=== PATIENT | female | born 1960 | race Two or more races ===

== ENCOUNTER 2024-07-21 08:30 | Outpatient (RCR) | payer MEDICAID, SELFPAY ==
[2024-07-01 12:08] LABS: Basophils % (Auto) 1 % (0-2.5); Eosinophils # (Auto) 0.2 Thou/mm3 (0.0-0.5); Eosinophils % (Auto) 4 % (0-10); Hematocrit 37.8 % (36.0-46.0); Immature Granulocytes % (Auto) 1 % (0-0); Immature Granulocytes Auto 0.03 Thou/mm3 (0.00-0.00); Lymphocytes # (Auto) 1.3 Thou/mm3 (1.0-4.8); Lymphocytes % (Auto) 26 % (10-50); Mean Corpuscular HGB Conc 34.4 g/dl (31.0-37.0); Mean Corpuscular Hemoglobin 30.4 pg (25.0-35.0); Mean Corpuscular Volume 88 fL (80-100); Monocytes # (Auto) 0.5 Thou/mm3 (0.0-0.8); Monocytes % (Auto) 10 % (0-12); Neutrophils % (Auto) 59 % (37-80); Nucleated Red Blood Cell % 0 /100 WBC (0); Platelet Count 84 Thou/mm3 (140-440); RDW Standard Deviation 43.1 fL (36.4-46.3); Red Blood Count 4.28 Miln/mm3 (4.00-5.20); White Blood Count 5.1 Thou/mm3 (3.6-11.0)
[2024-07-01 12:31] LABS: Alanine Aminotransferase 18 U/L (10-49); Albumin, Serum 4.7 gm/dL (3.4-4.8); Albumin/Globulin Ratio 1.6 (1.2-2.2); Alkaline Phosphatase 160 U/L (46-116); Anion Gap 9 (7-16); Aspartate Amino Transferase 30 U/L (0-34); BUN/Creatinine Ratio 24 Ratio (12-20); Bilirubin,Total 2.3 mg/dL (0.3-1.2); Blood Urea Nitrogen 17 mg/dL (9-23); Calcium 10.2 mg/dL (8.3-10.6); Calcium (Corrected) 10.2 mg/dL (8.5-10.1); Carbon Dioxide 24.5 mMol/L (20.0-31.0); Chloride 103 mMol/L (98-107); Creatinine (Component) 0.7 mg/dL (0.6-1.3); Globulin 2.9 gm/dL (2.3-3.5); Glucose 110 mg/dL (74-106); Osmolality,Calculated 274 (275-295); Potassium 3.5 mMol/L (3.4-5.1); Sodium 136 mMol/L (136-145); Total Protein 7.6 gm/dL (5.7-8.2); eGFR > 60 See Note
== END 2024-07-30 23:59 | disposition home or self-care (01) ==
LOC: SCTC 08:30
PROVIDERS: Internal Medicine Hematology & Oncology; PCP Physician Assistant; Referring Provider Physician Assistant; Visit Provider Radiology Therapeutic Radiology
DX: C50.411 Malignant neoplasm of upper-outer quadrant of right female breast (principal); Z17.1 Estrogen receptor negative status [ER-]; Z17.22 Progesterone receptor negative status; Z17.32 Human epidermal growth factor receptor 2 negative status; Z90.11 Acquired absence of right breast and nipple; Z92.3 Personal history of irradiation; Z92.21 Personal history of antineoplastic chemotherapy
CPT/HCPCS: 36591; 80053; 85025; 99212; A4216; J1642; G0463

== ENCOUNTER → 2024-08-26 | Outpatient (CLI) | payer MEDICAID, SELFPAY ==
--- NOTE | 2024-08-26 11:00 | XR_ITS ---
Examination: Breast ultrasound, unilateral, right complete Date and time of exam: August 26, 2024 1136 hours INDICATIONS: Diagnosis malignant neoplasm upper outer quadrant right female breast August 2022 partial mastectomy Technique: Real-time eisenberg scale ultrasonographic imaging performed right breast including all 4 quadrants as well as nipple retroareolar and axillary region. Findings: Scar formation 11:00 right breast, no suspicious masses IMPRESSION: BI-RADS Category 3: Probably benign findings One additional 6 month right breast sonogram follow-up recommended to document stability of scar formation 11:00 position right breast
--- NOTE | 2024-08-26 11:30 | XR_ITS ---
Examination: Diagnostic digital mammography, unilateral, left Computer aided detection 3-D breast Tomosynthesis, unilateral Date and time of exam: August 26, 2024 at 1145 hours Comparison 05/10/2024 Technique: Nonmagnified MLO, CC views of the left breast have been obtained, reconstructed from 3-D Tomosynthesis images. R2 computer aided detection program utilized for evaluation of suspicious masses and/or abnormal calcifications. 3-D Tomosynthesis images obtained. Findings: Scattered areas of fibroglandular density Stable lymph node axillary left breast No interval suspicious masses Impression: BI-RADS category 2: Benign findings Return to yearly follow-up mammography
== END | disposition home or self-care (01) ==
PROVIDERS: Referring Provider Internal Medicine Hematology & Oncology; Visit Provider Internal Medicine Hematology & Oncology
DX: R92.321 Mammographic fibroglandular density, right breast (principal); R92.8 Other abnormal and inconclusive findings on diagnostic imaging of breast; C50.411 Malignant neoplasm of upper-outer quadrant of right female breast
CPT/HCPCS: 76641; 77061; 77065; G0279

== ENCOUNTER 2024-09-12 14:48 | Outpatient (RCR) | payer MEDICAID, SELFPAY | END 2024-09-30 23:59 | disposition home or self-care (01) | LOC: SCTC 14:48 | PROVIDERS: PCP Physician Assistant; Referring Provider Nurse Practitioner Family; Visit Provider Nurse Practitioner Family | DX: C50.411 Malignant neoplasm of upper-outer quadrant of right female breast (principal); Z17.1 Estrogen receptor negative status [ER-]; Z17.22 Progesterone receptor negative status; Z17.32 Human epidermal growth factor receptor 2 negative status; Z90.11 Acquired absence of right breast and nipple; Z92.3 Personal history of irradiation; Z92.21 Personal history of antineoplastic chemotherapy | CPT/HCPCS: 99212; G0463 ==

== ENCOUNTER → 2024-09-22 | Outpatient (CLI) | payer MEDICAID, SELFPAY ==
--- NOTE | 2024-09-22 13:30 | ECHO_ITS ---
Transthoracic Echo Report Ht (in): 61 Wt (lb): 145 Exam Location: Echo Lab Status: Preadmit Ornamental Metal Erector: Elyssa Avalos Indications: Procedure Performed: BP: / HR: Rhythm: Sinus Technical Quality: Fair MEASUREMENTS (Male / Female) Normal Values 2D ECHO LV Diastolic Diameter PLAX 4.5 cm 4.2 - 5.9 / 3.9 - 5.3 cm LV Systolic Diameter PLAX 2.8 cm IVS Diastolic Thickness 0.8 cm 0.6 - 1.0 / 0.6 - 0.9 cm LVPW Diastolic Thickness 0.9 cm 0.6 - 1.0 / 0.6 - 0.9 cm LV Relative Wall Thickness 0.4 LVOT Diameter 1.6 cm LA Volume Index 18.2 cm?/m? 16 - 28 cm?/m? Ascending Aorta Diameter 3.1 cm M-MODE Aortic Root Diameter MM 2.5 cm LA Systolic Diameter MM 3.9 cm LA Ao Ratio MM 1.6 AV Cusp Separation MM 1.8 cm DOPPLER AV Peak Velocity 175.0 cm/s AV Peak Gradient 12.3 mmHg AV Mean Gradient 6.0 mmHg AV Velocity Time Integral 39.0 cm LVOT Peak Velocity 126.0 cm/s LVOT Peak Gradient 6.4 mmHg LVOT Velocity Time Integral 27.3 cm AV Area Cont Eq vti 1.4 cm? AV Area Cont Eq pk 1.4 cm? MV Peak Velocity 94.7 cm/s MV Peak Gradient 3.6 mmHg MV Mean Velocity 62.4 cm/s MV Mean Gradient 2.0 mmHg MV Area PHT 3.2 cm? Mitral E Point Velocity 85.9 cm/s Mitral A Point Velocity 108.0 cm/s Mitral E to A Ratio 0.8 LV E' Lateral Velocity 14.1 cm/s Mitral E to LV E' Lateral Ratio 6.1 LV E' Septal Velocity 9.5 cm/s Mitral E to LV E' Septal Ratio 9.1 TR Peak Velocity 247.0 cm/s TR Peak Gradient 24.4 mmHg FINDINGS Left Ventricle Normal left ventricular size, wall thickness, systolic function with no obvious regional wall motion abnormalities. The ejection fraction is visually estimated at 60-65%. Right Ventricle The right ventricle is normal in size and systolic function. The estimated right ventricular systoli c pressure, 30mmHg. RAP 5. Left Atrium The left atrium is normal by two-dimensional, color flow and Doppler imaging with no structural abnormalities, no thrombus formation present. Right Atrium The right atrium is normal by two-dimensional imaging, color flow and Doppler imaging with no struct ural abnormalities, no thrombus formation present. Atrial Septum The interatrial septum appears normal with no evidence of a shunt. Aorta The aorta is normal by two-dimensional, color flow and Doppler interrogation. Mitral Valve The mitral valve is normal by two-dimensional, color flow and Doppler interrogation. There is trace mitral valve regurgitation. Aortic Valve The aortic valve is trileaflet and normal by two-dimensional, color flow and Doppler interrogation. There is no significant aortic valve regurgitation. Tricuspid Valve The tricuspid valve is normal by two-dimensional, color flow and Doppler interrogation. There is mil d tricuspid valve regurgitation. Pulmonic Valve There is trace pulmonic valve regurgitation. Vessels The pulmonary artery appears normal. The inferior vena cava pulmonary and hepatic veins appear alvaro l. Pericardium The pericardium is normal by two-dimensional imaging. There is no significant pericardial effusion. CONCLUSIONS Normal LV size and function. Estimated EF 60-65% Normal RV size and function. Estimated RVSP 30mmHg Trace MR.PI. Mild TR. Alyssa Medina (Electronically Signed) Final Date: 24 September 2024 09:17
== END | disposition home or self-care (01) ==
LOC: SDIM 13:31
PROVIDERS: PCP Physician Assistant; Referring Provider Internal Medicine Hematology & Oncology; Visit Provider Internal Medicine Hematology & Oncology
DX: I08.1 Rheumatic disorders of both mitral and tricuspid valves (principal); C50.411 Malignant neoplasm of upper-outer quadrant of right female breast
CPT/HCPCS: 93306

== ENCOUNTER → 2024-11-10 | Outpatient (CLI) | payer MEDICAID, SELFPAY ==
--- NOTE | 2024-11-10 14:30 | XR_ITS ---
Examination: Breast ultrasound, unilateral, right Date and time of exam: November 10, 2024 1420 hrs. Indications: Diagnosis malignant neoplasm upper quadrant right female breast, scar reformation 11:00 position right breast on breast sonogram August 26, 2024 Technique: Real-time eisenberg scale ultrasonographic imaging performed right breast including all 4 quadrants as well as nipple retroareolar and axillary region. Findings: Stable scar formation in the 11:00 position right breast No suspicious nodules Dilated ducts retroareolar Impression: BI-RADS Category 3: Probably benign findings Recommend 1 continued 6 month follow-up right breast sonogram to document stability of scar formation in the 11:00 position right breast
== END | disposition home or self-care (01) ==
PROVIDERS: PCP Physician Assistant; Referring Provider Internal Medicine Hematology & Oncology; Visit Provider Internal Medicine Hematology & Oncology
DX: R92.8 Other abnormal and inconclusive findings on diagnostic imaging of breast (principal); C50.411 Malignant neoplasm of upper-outer quadrant of right female breast
CPT/HCPCS: 76641

== ENCOUNTER → 2024-12-13 | Outpatient (CLI) | payer MEDICAID, SELFPAY ==
--- NOTE | 2024-12-13 14:30 | ECHO_ITS ---
Transthoracic Echo Report Ht (in): 60 Wt (lb): 144 Exam Location: Echo Lab Status: Preadmit Senior Quality Engineer: STELLA Jackson^^^^ Indications: Procedure Performed: BP: / HR: MEASUREMENTS (Male / Female) Normal Values 2D ECHO LV Diastolic Diameter PLAX 4.8 cm 4.2 - 5.9 / 3.9 - 5.3 cm LV Systolic Diameter PLAX 3.0 cm IVS Diastolic Thickness 1.0 cm 0.6 - 1.0 / 0.6 - 0.9 cm LVPW Diastolic Thickness 0.9 cm 0.6 - 1.0 / 0.6 - 0.9 cm LV Relative Wall Thickness 0.4 LVOT Diameter 1.4 cm Aortic Root Diameter 2.7 cm LA Systolic Diameter LX 3.6 cm 3.0 - 4.0 / 2.7 - 3.8 cm LA Volume Index 30.0 cm?/m? 16 - 28 cm?/m? DOPPLER AV Peak Velocity 171.5 cm/s AV Peak Gradient 11.8 mmHg AV Mean Gradient 6.5 mmHg AV Velocity Time Integral 42.4 cm LVOT Peak Velocity 119.0 cm/s LVOT Peak Gradient 5.7 mmHg LVOT Velocity Time Integral 31.2 cm AV Area Cont Eq vti 1.1 cm? AV Area Cont Eq pk 1.1 cm? MV Area PHT 3.9 cm? Mitral E Point Velocity 86.6 cm/s Mitral A Point Velocity 83.5 cm/s Mitral E to A Ratio 1.0 LV E' Lateral Velocity 12.9 cm/s Mitral E to LV E' Lateral Ratio 6.7 LV E' Septal Velocity 10.5 cm/s Mitral E to LV E' Septal Ratio 8.2 TR Peak Velocity 298.0 cm/s TR Peak Gradient 35.5 mmHg RVOT Peak Velocity 73.2 cm/s FINDINGS Left Ventricle Normal left ventricular size, wall thickness, systolic function with no obvious regional wall motion abnormalities. There is grade II diastolic dysfunction of the left ventricle (pseudonormal filling pattern). The left ventricular ejection fraction is normal, estimated at 55-60%. Right Ventricle The right ventricle is normal in size and systolic function. The estimated right ventricular systolic pressure, 36 mmHg Left Atrium The left atrium is normal by two-dimensional, color flow and Doppler imaging with no structural abnormalities, no thrombus formation present. Right Atrium The right atrium is normal by two-dimensional imaging, color flow and Doppler imaging with no structural abnormalities, no thrombus formation present. Atrial Septum The interatrial septum appears normal with no evidence of a shunt. Aorta The aorta is normal by two-dimensional, color flow and Doppler interrogation. Mitral Valve Mild mitral regurgitation. Mild mitral annular calcification. Aortic Valve Aortic valve sclerosis. Tricuspid Valve There is mild tricuspid valve regurgitation. Pulmonic Valve The pulmonic valve is not well visualized. There is no significant pulmonic valve regurgitation. Vessels The pulmonary artery appears normal. The inferior vena cava pulmonary and hepatic veins appear normal. Pericardium The pericardium is normal by two-dimensional imaging. There is no significant pericardial effusion. CONCLUSIONS indication: Cancer center The transthoracic study is normal by two-dimensional, color flow imaging and Doppler interrogation. Normal left ventricular size and function. Approximate ejection fraction is 60%. Trace mitral and trace tricuspid regurgitation Alyssa Medina (Electronically Signed) Final Date: 14 December 2024 11:58
== END | disposition home or self-care (01) ==
LOC: SDIM 13:51
PROVIDERS: PCP Physician Assistant; Referring Provider Internal Medicine Hematology & Oncology; Visit Provider Internal Medicine Hematology & Oncology
DX: I08.1 Rheumatic disorders of both mitral and tricuspid valves (principal); C50.411 Malignant neoplasm of upper-outer quadrant of right female breast
CPT/HCPCS: 93306

== ENCOUNTER → 2025-03-06 | Outpatient (CLI) | payer MEDICAID, SELFPAY ==
--- NOTE | 2025-03-06 13:00 | XR_ITS ---
Examination: Breast ultrasound, unilateral, right Date and time of exam: March 06, 2025 1315 hours Comparison November 10, 2024 INDICATIONS: Diagnosis malignant neoplasm upper quadrant right female breast, scar formation 11:00 position right breast on breast sonogram August 26, 2024 Technique: Real-time eisenberg scale ultrasonographic imaging performed right breast including all 4 quadrants as well as nipple retroareolar and axillary region. Findings: Scar formation 10 to 11:00 position right breast and retroareolar which appears slightly more prominent compared to November 13, 2024, IMPRESSION: BI-RADS Category 3: Probably benign findings Recommend 1 additional 6 month right breast sonogram follow-up to document stability of slightly more prominent scar formation right breast on the current study
== END | disposition home or self-care (01) ==
LOC: CDIM 12:40
PROVIDERS: PCP Physician Assistant; Referring Provider Internal Medicine Hematology & Oncology; Visit Provider Internal Medicine Hematology & Oncology
DX: R92.8 Other abnormal and inconclusive findings on diagnostic imaging of breast (principal); C50.411 Malignant neoplasm of upper-outer quadrant of right female breast
CPT/HCPCS: 76641

== ENCOUNTER 2025-03-22 10:50 | Outpatient (RCR) | payer MEDICAID, SELFPAY ==
[2025-03-17 09:56] LABS: Basophils # (Auto) 0.0 Thou/mm3 (0.0-0.2); Basophils % (Auto) 1 % (0-2.5); Eosinophils # (Auto) 0.2 Thou/mm3 (0.0-0.5); Eosinophils % (Auto) 4 % (0-10); Hematocrit 36.6 % (36.0-46.0); Hemoglobin 13.3 g/dL (12.0-16.0); Immature Granulocytes Auto 0.04 Thou/mm3 (0.00-0.00); Lymphocytes # (Auto) 1.2 Thou/mm3 (1.0-4.8); Lymphocytes % (Auto) 24 % (10-50); Mean Corpuscular HGB Conc 36.3 g/dl (31.0-37.0); Mean Corpuscular Hemoglobin 31.1 pg (25.0-35.0); Mean Corpuscular Volume 86 fL (80-100); Monocytes # (Auto) 0.6 Thou/mm3 (0.0-0.8); Monocytes % (Auto) 12 % (0-12); Neutrophils # (Auto) 3.0 Thou/mm3 (1.8-7.7); Neutrophils % (Auto) 59 % (37-80); Nucleated Red Blood Cell # 0.00 Thou/mm3 (0.00-0.00); Nucleated Red Blood Cell % 0 /100 WBC (0); Platelet Count 98 Thou/mm3 (140-440); RDW Standard Deviation 39.3 fL (36.4-46.3); Red Blood Count 4.28 Miln/mm3 (4.00-5.20); White Blood Count 5.1 Thou/mm3 (3.6-11.0)
[2025-03-17 10:18] LABS: Alanine Aminotransferase 21 U/L (10-49); Albumin, Serum 4.9 gm/dL (3.4-4.8); Albumin/Globulin Ratio 2.0 (1.2-2.2); Alkaline Phosphatase 111 U/L (46-116); Anion Gap 8 (7-16); Aspartate Amino Transferase 26 U/L (0-34); BUN/Creatinine Ratio 20 Ratio (12-20); Bilirubin,Total 1.7 mg/dL (0.3-1.2); Blood Urea Nitrogen 14 mg/dL (9-23); Calcium 10.3 mg/dL (8.3-10.6); Calcium (Corrected) 10.3 mg/dL (8.5-10.1); Carbon Dioxide 26.2 mMol/L (20.0-31.0); Chloride 104 mMol/L (98-107); Creatinine (Component) 0.7 mg/dL (0.6-1.3); Globulin 2.4 gm/dL (2.3-3.5); Glucose 106 mg/dL (74-106); Osmolality,Calculated 276 (275-295); Potassium 3.9 mMol/L (3.4-5.1); Sodium 138 mMol/L (136-145); Total Protein 7.3 gm/dL (5.7-8.2); eGFR > 60 See Note
[2025-03-17 10:36] LABS: CA 15-3 4.0 U/mL (<32.4); Carcinoembryonic Antigen < 0.0 ng/mL (0.0-5.0)
--- NOTE | 2025-03-27 05:22 | CTCFLWUP_ITS ---
Patient: NELLIE YANG : 1960 Page 5 of 7 FOLLOW UP NOTE DATE OF SERVICE: 03/22/2025 NAME: NELLIE YANG ACCOUNT: [id number] : 1960 AGE: 64 INTERVAL HISTORY: Patient in for follow-up visit. Patient history of right breast cancer. Right breast ultrasound done on 08/26/2024 showed probably benign findings, recommended 6-month right breast ultrasound to document stability of scar formation. Left breast mammogram done on 08/26/2024 showed benign findings rec ommend yearly mammogram. Patient denies any continued complaints. Patient reports good appetite and energy levels. Her history includes chronic hypertension and mild valvular regurgitation. Recent breast ultrasound (July 2024) showed benign findings. She has completed all required cancer treatments and currently has a port in place. The plan includes scheduling an annual mammogram, removing the implanted port ( referral placed to Dr. Levy), continuing regular follow-ups, and maintaining her upcoming echocardiogram. Dietary modifications were encouraged to address potential diabetes risk. ONCOLOGY HISTORY: Stage I EA (pT1c, N0, cM0) ER negative, AZ negative, HER2/demetrius overexpressed 3+, invasive ductal carcinoma of the right breast. Status post right partial mastectomy and sentinel lymph node biopsy (10/24/2022) Unable to tolerate paclitaxel due to what appears allergic reaction (11/25/2022) S/p adjuvant trastuzumab Emtansine (12/09/2022??02/12/2024) S/p adjuvant radiation therapy to the right breast (12/07/2023 - 01/01/2024) DIAGNOSIS: Malignant neoplasm of upper-outer quadrant of right female breast [ICD10] C50.411 DATE OF DIAGNOSIS: 09/15/2022 STAGE/TNM: Stage I EA (pT1c, N0, cM0) ER negative, AZ negative, HER2/demetrius overexpressed 3+, invasive ductal carcinoma of the right breast. TREATMENT HISTORY: Care?Plan Start?Date Cycle Day Intent taxol,?herceptin?1yr?adju 11/25/2022 1 21 Curative?(adjuvant) KADCYLA?adjuvant?17?cycles 12/09/2022 1 21 Curative?(adjuvant) HISTORY OF PRESENT ILLNESS: Nellie Yang is a 64-year-old Turkmen-speaking female with history of diabetes as well as hypertension has the following oncology history. 07/31/2022: Bilateral diagnostic digital mammography? 07/31/2022: Right breast ultrasound? 09/15/2022: Ultrasound-guided biopsy of the right breast mass? 10/24/2022: Right breast partial mastectomy and sentinel lymph node biopsy? 10/31/2022: Echocardiogram?LVEF 65-70% 11/25/2022: Ms. Yang had 1 dose of Taxol and Herceptin. Unfortunately she was not able to tolerate Taxol due to allergic reaction. 12/09/2022?02/12/2020: Ms. Yang was treated with adjuvant ado-trastuzumab emtansine (Kadcyla) 12/17/2023 - 01/01/2024: Ms. Yang had adjuvant radiation therapy to the right breast 03/30/2024: Bilateral screening mammograms OTHER MEDICAL HISTORY/CONDITIONS: Diabetes HTN Right breat cancer- dx 09/15/22 ROBERT-BSO - 10 yrs ago Cholecystectomy - 12yrs ago FAMILY HISTORY: Cancer?History:?Denies Patient?denies?family?cancer?history. SOCIAL HISTORY: Occupational?History:?[employer] Education?Level:?Attended College, did not graduate Marital?Status:? Tobacco?Pack?per?Day:?0 Tobacco?Use:?Denies ETOH?Use:?Denies Drug?Note:?Denies Social History Note:?Dtr and grandtr live with pt [employer]KER HISTORY: Menarche?-?Age:?15 Menopause:?2016 :?23 Live?Births:?4 Age?1st?:?4 MEDICATIONS: 1. amlodipine - 10 mg 1 tab Daily 2. metformin - 500 mg Daily 3. potassium chloride - 20 mEq 1 tab Daily 4. spironolactone - 50 mg 1 tab Daily 5. Vitamin D3 - 400 unit 1 Capsule Daily 6. ZyrTEC - 10 mg 1 tab As needed Medications Last Reconciled by Nellie Nolan MA on 03/22/2025 ALLERGIES: KETOROLAC TROMETHAMINE; shrimp; paclitaxel REVIEW OF SYSTEMS: A complete 14-point review of systems was performed and is negative except as noted in interval history. PHYSICAL EXAMINATION: VITAL SIGNS: Temperature?99.1, B/P?137/72, Oxygen?Saturation?99% PAIN: 0 - No pain ECOG Performance Status: 0 - Asymptomatic and fully active GENERAL APPEARANCE: Appears well, in no apparent distress, appropriately interactive. HEENT: Normocephalic, no temporal wasting, normal conjunctiva, no scleral icterus, normal hearing, lips without lesions, neck normal range of motion. CARDIOVASCULAR: Normal heart sounds. PULMONARY: Normal respiratory effort, no respiratory distress or use of accessory muscles, speaking in full sentences, no tachypnea. CHEST: Chemo-Port on right side of chest EXTREMITIES: No pedal edema or cyanosis. SKIN: Normal skin appearance. NEUROLOGIC: Alert and oriented x4. PSHYCHIATRIC: Appropriate affect, mood normal, behavior normal, intact thought and speech. LABORATORY DATA: I have personally reviewed and interpreted each of the patient?s relevant lab tests, abnormal findings are below: Date 07/01/24 03/17/25 ??WHITE?BLOOD?COUNT?(Thou/mm3) 5.1 5.1 ??RED?BLOOD?COUNT?(Miln/mm3) 4.28 4.28 ??HEMOGLOBIN?(gm/dl) 13.0 13.3 ??HEMATOCRIT?(%) 37.8 36.6 ??PLATELET?COUNT?(Thou/mm3) 84?L 98?L ??NEUTROPHILS?%,?AUTO?(%) 59 59 ??LYMPH?%,?AUTO?(%) 26 24 ??NEUTROPHILS,?AUTO?(Thou/mm3) 3.0 3.0 ??GLUCOSE,RANDOM?(mg/dL) ? 106 ??BLOOD?UREA?NITROGEN?(mg/dL) ? 14 ??CREATININE?(mg/dL) ? 0.70 ??SODIUM?(mmol/L) ? 138 ??POTASSIUM?(mmol/L) ? 3.9 ??CHLORIDE?(mmol/L) ? 104 ??CrCl?(CandG)?(ml/min) ? 73.64 ??AST/SGOT?(Unit/L) ? 26 ??ALT/SGPT?(Unit/L) ? 21 ??ALKALINE?PHOSPHATASE?(Unit/L) ? 111 ??BILIRUBIN,?TOTAL?(mg/dL) ? 1.7?H ??PROTEIN?TOTAL?(gm/dl) ? 7.3 ??ALBUMIN,?SERUM?(gm/dl) ? 4.9?H ??GLOBULIN?(gm/dl) ? 2.4 ??ALBUMIN/GLOBULIN?RATIO ? 2.0 ??CALCIUM,?SERUM?(mg/dL) ? 10.3 ??CALCIUM?SERUM?(CORRECTED)?(mg/dL) ? 10.3?H ??CEA?(O*)?(ng/ml) ? <?0.0?L ASSESSMENT/PLAN: 1. Stage IA (pT1c, N0, centimeters 0) ER negative, AZ negative, HER2/demetrius overexpressed 3+, invasive ductal carcinoma of the right breast. Status post right partial mastectomy and sentinel lymph node biopsy (10/24/2022) 10 mm left axillary lymph node was noted on recent mammograms. The patient had 1 year of adjuvant trastuzumab Emtansine. She also had adjuvant radiation therapy to the right breast as documented above. Port on right side of her chest, patient does not want to have removed at this time. Left breast mammogram recommended yearly follow-up, benign findings, 08/26/2024 Right breast ultrasound recommended 6-month follow-up to document stability with scar formation 08/26/2024. William is a patient with a history of early-stage breast cancer, presenting for follow-up and management of various health concerns. History of Early-Stage Breast Cancer Assessment: Patient has a history of very early-stage breast cancer, measuring 0.6 cm and ER/AZ positive. She has completed all required treatments. Recent breast ultrasound in July showed benign findings. Last mammogram was performed in July 2024. Plan: - Schedule annual mammogram (due now) - Remove implanted port (placed 2 years ago) - Referral placed to Dr. Levy for port removal - Continue regular follow-ups Cardiovascular Health Assessment: Patient has normal heart function with mild valvular regurgitation, possibly secondary to chronic hypertension. Echocardiogram shows overall normal cardiac function. Plan: - Echocardiogram scheduled for upcoming Thursday - Continue management of hypertension (if diagnosed) - Encourage lifestyle modifications for cardiovascular health Diabetes Risk Assessment: Patient mentions efforts to manage diet, suggesting possible concerns about diabetes risk or diagnosis. Plan: - Encourage continuation of dietary modifications - Reinforce importance of avoiding high-sugar foods ORDERS: Order # Description [id number] RETURN TO CLINIC: I reviewed the diagnosis, prognosis, and recommended treatment/procedure options with the patient (and/or their legal ocean import representative), including the potential benefits, risks, side effects and alternative therapies. We also discussed the option of no treatment and the possibility of clinical trial participation, if applicable. All questions were addressed, and they demonstrated understanding. They provided informed consent to proceed with the proposed plan of care. BILLING AND COMPLIANCE: I reviewed external records from providers outside my specialty as summarized above. I spent a total of 50 minutes on this patient?s care on the day of their visit excluding time spent related to any billed procedures. This time includes time spent with the patient as well as time spent documenting in the medical record, reviewing patients records and tests, obtaining history, placing orders, communicating with other healthcare professionals, counseling the patient, family or caregiver, and/or care coordination for the diagnoses above. Electronically Signed by: Jose Milligan MD T: 5:20 AM CC: PCP: Shana Simms Referring: Shana Simms This document was completed utilizing speech recognition software. Grammatical errors, random word insertions, pronoun errors, and incomplete sentences are an occasional consequence of this system due to software limitations, ambient noise, and hardware issues. Any formal questions or concerns about the content, text or information contained within the body of this dictation should be directly addressed to the provider for clarification.
== END 2025-03-30 23:59 | disposition home or self-care (01) ==
LOC: SCTC 10:50
PROVIDERS: Nurse Practitioner Family; PCP Physician Assistant; Referring Provider Physician Assistant; Visit Provider Internal Medicine Hematology & Oncology
DX: C50.411 Malignant neoplasm of upper-outer quadrant of right female breast (principal); Z08 Encounter for follow-up examination after completed treatment for malignant neoplasm; Z85.3 Personal history of malignant neoplasm of breast; Z90.11 Acquired absence of right breast and nipple; Z92.21 Personal history of antineoplastic chemotherapy; Z92.3 Personal history of irradiation; I10 Essential (primary) hypertension; I38 Endocarditis, valve unspecified; Z71.3 Dietary counseling and surveillance
CPT/HCPCS: 36591; 80053; 82378; 85025; 86300; 99212; G0463

== ENCOUNTER → 2025-03-26 | Outpatient (CLI) | payer MEDICAID, SELFPAY ==
--- NOTE | 2025-03-26 12:00 | ECHO_ITS ---
Transthoracic Echo Report Ht (in): 60 Wt (lb): 146 Exam Location: Echo Lab Status: Preadmit Pens And Pencils Repairer: Adrianna Patel Indications: Procedure Performed: BP: / HR: MEASUREMENTS (Male / Female) Normal Values 2D ECHO LV Diastolic Diameter PLAX 4.4 cm 4.2 - 5.9 / 3.9 - 5.3 cm LV Systolic Diameter PLAX 2.6 cm IVS Diastolic Thickness 0.9 cm 0.6 - 1.0 / 0.6 - 0.9 cm LVPW Diastolic Thickness 1.0 cm 0.6 - 1.0 / 0.6 - 0.9 cm LV Relative Wall Thickness 0.4 LVOT Diameter 1.6 cm Aortic Root Diameter 1.9 cm LA Systolic Diameter LX 2.9 cm 3.0 - 4.0 / 2.7 - 3.8 cm LV Ejection Fraction MOD BP 67.1 % >= 55 % LV Ejection Fraction MOD 4C 70.2 % LV Ejection Fraction 4C AL 71.6 % LV Ejection Fraction MOD 2C 63.2 % LV Ejection Fraction 2C AL 64.3 % LA Volume Index 19.3 cm?/m? 16 - 28 cm?/m? M-MODE Aortic Root Diameter MM 2.0 cm LA Systolic Diameter MM 2.9 cm LA Ao Ratio MM 1.5 AV Cusp Separation MM 1.4 cm DOPPLER AV Peak Velocity 157.5 cm/s AV Peak Gradient 9.9 mmHg AV Mean Gradient 4.0 mmHg AV Velocity Time Integral 34.5 cm LVOT Peak Velocity 127.0 cm/s LVOT Peak Gradient 6.5 mmHg LVOT Velocity Time Integral 34.8 cm AV Area Cont Eq vti 2.0 cm? AV Area Cont Eq pk 1.6 cm? MV Area PHT 3.6 cm? Mitral E Point Velocity 74.7 cm/s Mitral A Point Velocity 81.5 cm/s Mitral E to A Ratio 0.9 LV E' Lateral Velocity 12.2 cm/s Mitral E to LV E' Lateral Ratio 6.1 LV E' Septal Velocity 7.6 cm/s Mitral E to LV E' Septal Ratio 9.8 TR Peak Velocity 250.5 cm/s TR Peak Gradient 25.1 mmHg PV Peak Velocity 125.0 cm/s PV Peak Gradient 6.3 mmHg FINDINGS Left Ventricle Normal left ventricular size, wall thickness, systolic function with no obvious regional wall motion abnormalities. The ejection fraction is visually estimated at 55-60 %. There is grade I diastolic dysfunction of the left ventricle (impaired relaxation pattern). Right Ventricle The right ventricle is normal in size and systolic function. Left Atrium The left atrium is normal by two-dimensional, color flow and Doppler imaging with no structural abnormalities, no thrombus formation present. Right Atrium The right atrium is normal by two-dimensional imaging, color flow and Doppler imaging with no structural abnormalities, no thrombus formation present. Atrial Septum The interatrial septum appears normal with no evidence of a shunt. Aorta The aorta is normal by two-dimensional, color flow and Doppler interrogation. Mitral Valve The mitral valve is normal by two-dimensional, color flow and Doppler interrogation. There is no significant mitral valve regurgitation, stenosis or prolapse. Aortic Valve The aortic valve is trileaflet and normal by two-dimensional, color flow and Doppler interrogation. There is no significant aortic valve regurgitation. Tricuspid Valve The tricuspid valve is normal by two-dimensional, color flow and Doppler interrogation. There is trace tricuspid valve regurgitation. Pulmonic Valve The pulmonic valve is not well visualized. There is no significant pulmonic valve regurgitation. Vessels The pulmonary artery appears normal. The inferior vena cava pulmonary and hepatic veins appear normal. Pericardium The pericardium is normal by two-dimensional imaging. There is no significant pericardial effusion. CONCLUSIONS Indication: Malignant neoplasm of upper outer quadra Normal LV size and function. Estimated EF at 55-60 %. There is grade I diastolic dysfunction. The RV is normal in size and systolic function. Trace TR. Shante Corrales (Electronically Signed) Final Date: 27 March 2025 09:04
== END | disposition home or self-care (01) ==
LOC: SDIM 03-30 07:28
PROVIDERS: PCP Physician Assistant; Referring Provider Internal Medicine Hematology & Oncology; Visit Provider Internal Medicine Hematology & Oncology
DX: I07.1 Rheumatic tricuspid insufficiency (principal); I50.31 Acute diastolic (congestive) heart failure; C50.411 Malignant neoplasm of upper-outer quadrant of right female breast
CPT/HCPCS: 93306

== ENCOUNTER → 2025-06-07 | Outpatient (CLI) | payer MEDICAID, SELFPAY ==
--- NOTE | 2025-06-07 13:30 | XR_ITS ---
Examination: Breast ultrasound, unilateral, right complete Date and time of exam: June 07, 2025, 1355 hours INDICATIONS: Right breast carcinoma diagnosis 2021, lumpectomy 2022, ultrasound right breast March 06, 2025 slightly more prominent scar formation right breast 10 to 11 o'clock position Technique: Real-time eisenberg scale ultrasonographic imaging performed right breast including all 4 quadrants as well as nipple retroareolar and axillary region. Findings: Stable scar formation right breast in the 12 o'clock position retroareolar No interval suspicious masses IMPRESSION: BI-RADS Category 2: Benign findings
== END | disposition home or self-care (01) ==
PROVIDERS: PCP Physician Assistant; Referring Provider Internal Medicine Hematology & Oncology; Visit Provider Internal Medicine Hematology & Oncology
DX: R92.8 Other abnormal and inconclusive findings on diagnostic imaging of breast (principal); C50.411 Malignant neoplasm of upper-outer quadrant of right female breast
CPT/HCPCS: 76641

== ENCOUNTER → 2025-08-01 | Outpatient (CLI) | payer MEDICARE, MEDICAID, SELFPAY ==
--- NOTE | 2025-08-01 10:30 | XR_ITS ---
Examination: Screening digital mammography, bilateral Computer aided detection 3-D breast Tomosynthesis, bilateral Date and time of exam: August 01, 2025, 1041 hours Compared to mammograms dating to July 31, 2022 Indication: Screening Technique: Nonmagnified MLO, CC views of the breasts to been obtained, reconstructed from 3-D Tomosynthesis images. R2 computer aided detection program utilized for evaluation of suspicious masses and/or abnormal calcifications. 3-D Tomosynthesis images obtained. Findings: Scar formation and skin thickening right breast consistent with patient's history treated right breast carcinoma 2021, 2022 Scattered areas of fibroglandular density Partial visualization possible interval enlarged lymph node in the right axilla,. Impression: BI-RADS Category 0: Incomplete: Need additional imaging evaluation Recommend follow-up spot tomographic views right axilla as well as bilateral breast sonography to complete the work-up
== END | disposition home or self-care (01) ==
LOC: CDIM 10:30
PROVIDERS: PCP Physician Assistant; Referring Provider Internal Medicine Hematology & Oncology; Visit Provider Internal Medicine Hematology & Oncology
DX: Z12.31 Encounter for screening mammogram for malignant neoplasm of breast (principal); R92.8 Other abnormal and inconclusive findings on diagnostic imaging of breast; C50.411 Malignant neoplasm of upper-outer quadrant of right female breast
CPT/HCPCS: 77063; 77067

== ENCOUNTER → 2025-08-18 | Outpatient (CLI) | payer MEDICARE, MEDICAID, SELFPAY ==
--- NOTE | 2025-08-18 13:30 | XR_ITS ---
Examination: Diagnostic digital mammography, unilateral, right Computer aided detection 3-D breast Tomosynthesis, unilateral Date and time of exam: July, 1325 hours INDICATIONS: Mammogram August 01, 2025 enlarged lymph node right axilla Technique: Nonmagnified MLO, CC views of the right breast have been obtained, reconstructed from 3-D Tomosynthesis images. R2 computer aided detection program utilized for evaluation of suspicious masses and/or abnormal calcifications. 3-D Tomosynthesis images obtained. Findings: Scattered areas of fibroglandular density. Scar formation right breast consistent with patient's history of treated breast cancer 2021 Focal asymmetry does remain in the right axilla Impression: BI-RADS category 0: Incomplete: Need additional imaging evaluation Recommend this patient return for dedicated right axillary sonography with a radiologist in attendance
--- NOTE | 2025-08-18 14:30 | XR_ITS ---
Examination: Breast ultrasound complete, bilateral Date and time of exam: August 18, 2025, 0135 hours INDICATIONS: Mammogram August 01, 2025 scar formation and skin thickening right breast, treated right breast cancer 2021 2022 Technique: Real-time grayscale ultrasonographic imaging bilateral breasts, including all 4 quadrants as well as nipple retroareolar and axillary regions. Findings: Sonographic images right and left breast demonstrate no cystic or solid masses Right breast 11:00 scar formation . IMPRESSION: BI-RADS Category 3: Probably benign findings 1 additional 6-month right breast sonogram follow-up is needed to document stability of scar formation 11 o'clock position
== END | disposition home or self-care (01) ==
LOC: CDIM 13:13
PROVIDERS: Referring Provider Internal Medicine Hematology & Oncology; Visit Provider Internal Medicine Hematology & Oncology
DX: R92.8 Other abnormal and inconclusive findings on diagnostic imaging of breast (principal); C50.411 Malignant neoplasm of upper-outer quadrant of right female breast
CPT/HCPCS: 76641; 77061; 77065; G0279